=== PATIENT | male | born 1935 | race Caucasian/White ===

== ENCOUNTER 2023-06-14 04:23 | Inpatient (IN) | payer MEDICARE ==
[~2023-06-14] VITALS: Ht 177.8 cm; Wt 62.0 kg
[2023-06-14 05:08] LABS: HEMATOCRIT 37.4 % (41-53); HEMOGLOBIN 12.2 g/dL (13.5-17.5); MEAN CORPUSCULAR HEMOGLOBIN 28.8 pg (26.0-34.0); MEAN CORPUSCULAR HGB CONC 32.5 G/dL (31.0-37.0); MEAN CORPUSCULAR VOLUME 89 fL (80-100); PLATELET COUNT (AUTO) 79 K/uL (150-450); RED BLOOD CELL COUNT(AUTO) 4.22 MIL/uL (4.50-5.90); RED CELL DISTRIBUTION WIDTH 23.7 % (11.5-14.5)
[2023-06-14 05:12] LABS: APPEARANCE,URINE HAZY (CLEAR); BILIRUBIN,URINE NEGATIVE (NEGATIVE); GLUCOSE, URINE (UA) NEGATIVE (NEGATIVE); KETONES,URINE NEGATIVE (NEGATIVE); LEUKOCYTE ESTERASE ,URINE NEGATIVE (NEGATIVE); NITRATE,URINE NEGATIVE (NEGATIVE); OCCULT BLOOD,URINE SMALL (NEGATIVE); PROTEIN,URINE 30-70 mg/dL (NEGATIVE); SPECIFIC GRAVITIY, URINE 1.022 (1.003-1.030); UROBILINOGEN,URINE <=1.0 mg/dL (<=1.0)
[2023-06-14 05:12] LABS: INR 1.9 (0.9-1.1); PROTHROMBIN TIME 19.5 SEC (9.4-11.6)
[2023-06-14 05:32] LABS: BACTERIA,URINE Rare /HPF (None Seen); SQUAMOUS EPITHELIAL CELL,UR Few /LPF (None Seen); WBC,URINE 0-2 /HPF (0-5); YEAST,URINE None Seen /HPF (None Seen)
[2023-06-14 05:33] LABS: ANION GAP 10 mmol/L (8-16); CALCIUM, TOTAL 7.2 mg/dL (8.8-10.5); CARBON DIOXIDE 20 mmol/L (22-29); CHLORIDE 103 mmol/L (98-107); CREATININE 2.62 mg/dL (0.60-1.30); GLOMERULAR FILTR. RATE CALC 23 mL/min (>60); GLUCOSE,RANDOM 112 mg/dL (70-110); POTASSIUM 4.2 mmol/L (3.5-5.1); SODIUM SERUM 133 mmol/L (136-145)
[2023-06-14 05:36] LABS: B-TYPE NATRIURETIC PEPTIDE 564 pg/mL (0-100)
[2023-06-14 05:37] LABS: ALANINE AMINOTRANSFERASE 7 U/L (12-78); ALBUMIN 1.3 g/dL (3.4-5.0); ALKALINE PHOSPHATASE 102 U/L (46-116); ASPARTATE AMINOTRANSFERASE 17 U/L (15-37); BILIRUBIN,TOTAL 0.7 mg/dL (0.1-1.0); CREATINE KINASE, TOTAL ONLY 29 U/L (39-308)
[2023-06-14] MEDS ORDERED: SODIUM CHLORIDE 0.9% 1,550 ML IV ONE (06:00)
[2023-06-14] MEDS ORDERED: MetroNIDAZOLE 500 MG/NACL 100 ML IV ONE (06:00)
[2023-06-14 06:17] LABS: BAND NEUTROPHILS % (MANUAL) 10 % (0-5); LYMPHOCYTES % (MANUAL) 14 % (22-44); MONOCYTES % (MANUAL) 1 % (2-9); SEGMENTED NEUTROPHILS % 75 % (40-70)
[2023-06-14 06:17] LABS: COVID AG,FIA SOURCE NASAL SWAB
[2023-06-14 07:13] LABS: FIBRIN SPLIT PRODUCTS GT >10 but LT <40 mcg/mL (<10)
[2023-06-14 08:40] LABS: FIBRINOGEN 88 mg/dL (200-400)
[2023-06-14] MEDS ORDERED: ACETAMINOPHEN 325 MG TABLET PO PRN (16:15)
[2023-06-14] MEDS ORDERED: ZOLPIDEM TARTRATE 5 MG TABLET PO PRN (16:15)
[2023-06-14] MEDS ORDERED: MAGNESIUM HYDROXIDE SUSPENSION 30 ML UDCUP PO PRN (16:15)
[2023-06-14] MEDS ORDERED: HYDROCODONE/ACETAMINOPHEN 5-325 MG TABLET PO PRN (16:15)
[2023-06-14] MEDS ORDERED: MORPHINE SULFATE 2 MG/ML SYRINGE IVP PRN (16:15)
[2023-06-14] MEDS ORDERED: ALBUTEROL SULFATE 2.5 MG/0.5 ML NEB SOLUTION NEB PRN (16:15)
[2023-06-14] MEDS ORDERED: ONDANSETRON HCL 4 MG/2 ML VIAL IVP PRN (16:15)
[2023-06-14] MEDS ORDERED: BISACODYL 10 MG RECTAL RECTAL SUPPOSITORY PR PRN (16:15)
[2023-06-14] MEDS ORDERED: IPRATROPIUM BROMIDE 0.5 MG/2.5 ML NEB SOLUTION NEB PRN (16:15)
[2023-06-14] MEDS ORDERED: OMEP40CA21 PO (16:27)
[2023-06-14] MEDS ORDERED: THIA100T92 PO (16:27)
[2023-06-14] MEDS ORDERED: GABA-529 PO (16:27)
[2023-06-14] MEDS ORDERED: CHOL10002 PO (16:27)
[2023-06-14] MEDS ORDERED: ASPI-1450 PO (16:39)
[2023-06-14] MEDS ORDERED: ZINC50CA3 PO (16:39)
[2023-06-14] MEDS ORDERED: BUME1TAB34 PO (16:39)
[2023-06-14] MEDS ORDERED: ASCO500 PO (16:39)
[2023-06-14] MEDS ORDERED: METO50 PO (16:39)
[2023-06-14] MEDS ORDERED: HYDR-4723 PO (16:41)
[2023-06-14] MEDS ORDERED: MULT-1366 PO (16:41)
[2023-06-14] MEDS ORDERED: THIA100T80 PO (16:41)
[2023-06-14] MEDS: PIPERACILLIN/TAZO 3.375 GM/D5W 50 ML IV SCH ×2 (17:19→23:34)
[2023-06-14] MEDS: MetroNIDAZOLE 250 MG TABLET PO SCH (17:20)
[2023-06-14] MEDS: VANCOMYCIN HCL 125 MG/2.5 ML SOLUTION ORAL.SYG PO SCH (21:56)
[2023-06-14] MEDS ORDERED: FUROSEMIDE 40 MG/4 ML VIAL IVP STA (22:40)
[2023-06-14] MEDS ORDERED: FUROSEMIDE 40 MG/4 ML VIAL ONE (22:46)
[2023-06-15] MEDS ORDERED: ALBUMIN HUMAN 25%-12.5GM/50ML 50 ML IV STA (01:36)
[2023-06-15] MEDS ORDERED: NOREPINEPHRINE 8 MG/0.9 % NACL 250 ML IV PRN (01:45)
[2023-06-15 04:12] LABS: BASOPHILS % (AUTO) 0.2 % (0.0-2.0); EOSINOPHILS % (AUTO) 0.8 % (1.0-6.0); HEMATOCRIT 35.3 % (41-53); HEMOGLOBIN 11.6 g/dL (13.5-17.5); LYMPHOCYTES # (AUTO) 0.5 K/uL (1.0-4.8); LYMPHOCYTES % (AUTO) 5.5 % (22.0-44.0); MEAN CORPUSCULAR HEMOGLOBIN 28.9 pg (26.0-34.0); MEAN CORPUSCULAR VOLUME 88 fL (80-100); MONOCYTES # (AUTO) 0.2 K/uL (0.1-1.0); MONOCYTES % (AUTO) 2.2 % (2.0-9.0); NEUTROPHILS # (AUTO) 8.6 K/uL (1.8-7.7); RED BLOOD CELL COUNT(AUTO) 4.03 MIL/uL (4.50-5.90); RED CELL DISTRIBUTION WIDTH 23.6 % (11.5-14.5)
[2023-06-15 04:13] LABS: CALCIUM, TOTAL 7.2 mg/dL (8.8-10.5)
[2023-06-15 04:20] LABS: ALBUMIN 1.7 g/dL (3.4-5.0); TOTAL PROTEIN, SERUM 4.2 g/dL (6.4-8.2)
[2023-06-15 04:49] LABS: NEUTROPHILS % (AUTO) 91.3 % (40.0-70.0)
[2023-06-15 05:02] LABS: PLATELET COUNT (AUTO) 55 K/uL (150-450)
[2023-06-15] MEDS: PIPERACILLIN/TAZO 3.375 GM/D5W 50 ML IV SCH ×2 (05:28→11:21)
[2023-06-15] MEDS: HEPARIN SODIUM,PORCINE 5,000 UNITS/ML VIAL SQ SCH ×3 (08:00→16:22)
[2023-06-15] MEDS: MetroNIDAZOLE 250 MG TABLET PO SCH ×3 (08:45→16:00)
[2023-06-15] MEDS ORDERED: PANTOPRAZOLE SODIUM 40 MG DR TABLET PO SCH (09:00)
[2023-06-15] MEDS: VANCOMYCIN HCL 125 MG/2.5 ML SOLUTION ORAL.SYG PO SCH ×3 (09:00→16:00)
[2023-06-15 09:01] LABS: GLUCOMETER DEV NAME(LOC) ERT.5
[2023-06-15] MEDS: DEXTROSE 50%-WATER 25 GM/50 ML SYRINGE IVP PRN ×2 (09:42→17:55)
[2023-06-15 11:31] VITALS: TEMP 93.7
[2023-06-15] MEDS ORDERED: PHENYLEPHRINE 200 MG/D5%-WATER 250 ML IV PRN (15:00)
[2023-06-15 15:25] LABS: MAGNESIUM 1.8 mg/dL (1.80-2.40); PHOSPHORUS 4.4 mg/dL (2.5-4.9)
[2023-06-15] MEDS ORDERED: PIPERACILLIN SODIUM/TAZOBACTAM 2.25 GM in DEXTROSE 5%-WATER 50 ML IV SCH (17:00)
[2023-06-15 17:51] VITALS: BP 65/35; PULSE 90; RESP 22
[2023-06-15] MEDS ORDERED: 0.9% SODIUM CHLORIDE 250 ML BAG IV ONE (18:59)
[2023-06-16] MEDS ORDERED: VALS40TA11 PO (11:04)
[2023-06-16] MEDS ORDERED: SPIR-37 PO (11:04)
== END 2023-06-15 19:00 | DRG 871 ==
LOC: EMS 04:24 → ICUN 06-15 04:53
PROVIDERS: ADMIT Hospitalist; ATTEND Hospitalist
PROC: 5A12012 Performance of Cardiac Output, Single, Manual (ICD-10-PCS; principal; 2023-06-15)
PROC: 0BH17EZ Insertion of Endotracheal Airway into Trachea, Via Natural or Artificial Opening (ICD-10-PCS; 2023-06-15)
PROC: 5A1935Z Respiratory Ventilation, Less than 24 Consecutive Hours (ICD-10-PCS; 2023-06-15)
DX: A41.9 Sepsis, unspecified organism (principal); E43 Unspecified severe protein-calorie malnutrition; J96.01 Acute respiratory failure with hypoxia; J18.9 Pneumonia, unspecified organism; A04.72 Enterocolitis due to Clostridium difficile, not specified as recurrent; E87.1 Hypo-osmolality and hyponatremia; N17.9 Acute kidney failure, unspecified; R64 Cachexia; Z68.1 Body mass index [BMI] 19.9 or less, adult; I95.9 Hypotension, unspecified; L89.90 Pressure ulcer of unspecified site, unspecified stage; Z20.822 Contact with and (suspected) exposure to COVID-19; I50.9 Heart failure, unspecified; I49.01 Ventricular fibrillation; I73.9 Peripheral vascular disease, unspecified; N18.9 Chronic kidney disease, unspecified; S81.809A Unspecified open wound, unspecified lower leg, initial encounter; S31.000A Unspecified open wound of lower back and pelvis without penetration into retroperitoneum, initial encounter; X58.XXXA Exposure to other specified factors, initial encounter; Y93.89 Activity, other specified; Y92.89 Other specified places as the place of occurrence of the external cause; Y99.8 Other external cause status; Z79.82 Long term (current) use of aspirin; Z79.899 Other long term (current) drug therapy; Z86.19 Personal history of other infectious and parasitic diseases
CPT/HCPCS: 71045; 80053; 81001; 82550; 82962; 83605; 83735; 83880; 84100; 84145; 84484; 85025; 85362; 85384; 85610; 85730; 92950; 93005; 99291; G0378; J1644; J1940; J2270; J2370; J2543; J3490; J7050; J7060; P9047; Q9967; 36415-L1; 36415-TC